=== PATIENT | male | born 1950 | race Caucasian/White ===

== ENCOUNTER 2018-06-30 19:05 | Inpatient (IN) | payer MEDICARE ==
[~2018-06-30] VITALS: Ht 177.8 cm; Wt 119.0 kg
[2018-06-30] MEDS ORDERED: HEPARIN 25,000 UNITS/500ML PMX 500 ML ONE (19:14)
[2018-06-30] MEDS ORDERED: SODIUM CHLORIDE FLUSH 10ML SYR IVF ONE (19:30)
[2018-06-30 19:37] LABS: BASOPHILS # (AUTO) 0.08 x10^3/uL (0-0.1); BASOPHILS % (AUTO) 1 % (0-1); EOSINOPHILS # (AUTO) 0.17 x10^3/uL (0-0.4); EOSINOPHILS % (AUTO) 2 % (1-7); LYMPHOCYTES % (AUTO) 27 % (22-44); MD NO; MEAN CORPUSCULAR HGB CONC 33.3 g/dL (33.2-36.2); MEAN CORPUSCULAR VOLUME 89.9 fL (81-97); MEAN PLATELET VOLUME 8.1 fL (7.4-10.4); MONOCYTES # (AUTO) 0.73 x10^3/uL (0.2-0.8); MONOCYTES % (AUTO) 10 % (2-9); NEUTROPHILS # (AUTO) 4.46 x10^3/uL (1.8-6.8); NEUTROPHILS % (AUTO) 60 % (42-75); PLATELET COUNT 218 x10^3/uL (130-400); RED CELL DISTRIBUTION WIDTH 14.2 % (9.4-14.8)
[2018-06-30 19:43] LABS: INTERNATIONAL NORMALIZED RATIO 1.06 (0.93-1.1); PROTHROMBIN TIME 11.2 Seconds (9.6-11.5)
[2018-06-30 19:44] LABS: ALBUMIN 3.5 g/dL (3.4-5.0); ANION GAP 9 mmol/L (5-15); CALCIUM 8.7 mg/dL (8.5-10.1); CHLORIDE 109 mmol/L (98-107)
[2018-06-30 19:52] LABS: ALANINE AMINOTRANSFERASE 36 U/L (12-78); ALKALINE PHOSPHATASE 109 U/L (45-117); BILIRUBIN,TOTAL 0.6 mg/dL (0.2-1.0); CREATININE 0.81 mg/dL (0.7-1.3); TOTAL PROTEIN 6.8 g/dL (6.4-8.2)
[2018-06-30] MEDS ORDERED: NITROGLYCERIN/D5W PMX 250 ML ONE (19:55)
[2018-06-30] MEDS ORDERED: NITROGLYCERIN/D5W PMX 250 ML IV PRN (20:00)
[2018-06-30] MEDS ORDERED: ASPI-496 PO (20:13)
[2018-06-30] MEDS ORDERED: ATOR40TA78 PO (20:13)
[2018-06-30] MEDS ORDERED: CLOP75TA52 PO (20:13)
[2018-06-30] MEDS ORDERED: HYDR25TA6 PO (20:13)
[2018-06-30] MEDS ORDERED: OMEP-110 PO (20:13)
[2018-06-30] MEDS ORDERED: CARV3.1212 PO (20:13)
[2018-06-30] MEDS ORDERED: LOSA100T14 PO (20:13)
--- NOTE | 2018-06-30 20:19 | NUR ---
CAME FROM [facility] D/T CT ( ST DEPRESSION ) DR BRADLEY AT BED SIDE ADMIT ORDER NTG WAS STARTED BY DR BRADLEY WILL CONTROL SBP<140 HEP GTT WAS STARTED FROM [facility] WITH 1000UNIS/HR WILL KEEP THAT RATE UNTIL ANTI XA RESULT OBTAIN LABS WERE DRAWN ANTXA IS STILL PENDING PER DR BRADLEY ( WILL HOLD INITIAL BOLUS ) PT IS RESTING HOME MED REC WERE UPDATED CALL LIGHT WITHIN REACH
[2018-06-30] MEDS ORDERED: SODIUM CHLORIDE FLUSH 10ML SYR IVF PRN (20:30)
[2018-06-30] MEDS ORDERED: HEPARIN 5,000 UNITS/ML, 1ML IV ONE (20:30)
[2018-06-30] MEDS ORDERED: PLEASE ENTER ALLERGIES MC SCH (20:30)
[2018-06-30] MEDS ORDERED: HEPARIN 5,000 UNITS/ML, 1ML IV PRN (20:30)
[2018-06-30] MEDS ORDERED: HEPARIN 25,000 UNITS/500ML PMX 500 ML IV PRN (20:30)
--- NOTE | 2018-06-30 20:47 | NUR ---
GIVEN REPORT TO RN CHANA NTG AND HEP GTT IS INFUSING
[2018-06-30] MEDS ORDERED: morphine SULFATE 10 MG/ML, 1ML IV PRN (21:00)
[2018-06-30] MEDS ORDERED: ATORVASTATIN 80 MG TABLET PO SCH (21:00)
[2018-06-30 21:25] LABS: CHOL/HDL RATIO 1.9; LDL/HDL RATIO 0.7 (0.5-3.0)
[2018-06-30 21:30] VITALS: BP 134/76
[2018-06-30] MEDS: SODIUM CHLORIDE FLUSH 10ML SYR IVF SCH (22:18)
[2018-06-30] MEDS: CARVEDILOL 6.25 MG TABLET PO SCH (22:18)
[2018-06-30] MEDS ORDERED: OMEPRAZOLE 20 MG CAPSULE.DR PO ONE (23:00)
[2018-07-01 04:00] VITALS: BP 112/52
[2018-07-01 04:45] VITALS: BP 148/72
[2018-07-01 05:00] VITALS: BP 142/75
[2018-07-01] MEDS: CARVEDILOL 6.25 MG TABLET PO SCH (05:05)
[2018-07-01 05:58] LABS: BASOPHILS # (AUTO) 0.04 x10^3/uL (0-0.1); BASOPHILS % (AUTO) 1 % (0-1); EOSINOPHILS # (AUTO) 0.16 x10^3/uL (0-0.4); EOSINOPHILS % (AUTO) 2 % (1-7); LYMPHOCYTES # (AUTO) 1.83 x10^3/uL (1-3.4); LYMPHOCYTES % (AUTO) 28 % (22-44); MD NO; MEAN CORPUSCULAR HEMOGLOBIN 29.9 pg (27.5-34.5); MEAN CORPUSCULAR HGB CONC 33.7 g/dL (33.2-36.2); MEAN CORPUSCULAR VOLUME 88.7 fL (81-97); MEAN PLATELET VOLUME 8.2 fL (7.4-10.4); MONOCYTES # (AUTO) 0.75 x10^3/uL (0.2-0.8); MONOCYTES % (AUTO) 12 % (2-9); NEUTROPHILS % (AUTO) 57 % (42-75); PLATELET COUNT 208 x10^3/uL (130-400); RED BLOOD COUNT 4.42 x10^6/uL (4.38-5.82); RED CELL DISTRIBUTION WIDTH 13.8 % (9.4-14.8)
[2018-07-01] MEDS ORDERED: ASPIRIN 81 MG TABLET EC PO SCH (06:00)
[2018-07-01] MEDS ORDERED: OMEPRAZOLE 20 MG CAPSULE.DR PO SCH (06:00)
[2018-07-01 06:12] LABS: ANION GAP 7 mmol/L (5-15); CALCIUM 8.3 mg/dL (8.5-10.1); CHLORIDE 109 mmol/L (98-107); CREATININE 0.69 mg/dL (0.7-1.3)
[2018-07-01] MEDS ORDERED: REGULAR INSULIN 62.5 UNITS in SODIUM CHLORIDE 0.9% 249.375 ML IV PRN ×2 (07:30→11:48)
[2018-07-01] MEDS ORDERED: MANNITOL PMX 20% 500 ML IVPB PRN (07:30)
[2018-07-01] MEDS ORDERED: PHENYLEPHRINE 10 MG in SODIUM CHLORIDE 0.9% 249 ML IV PRN ×2 (07:30→11:48)
[2018-07-01] MEDS ORDERED: POTASSIUM CHLORIDE 80 MEQ, SODIUM BICARBONATE 8.4% 10 MEQ, MAGNESIUM SULFATE 0.5 GM, LI... IV PRN (07:30)
[2018-07-01] MEDS ORDERED: CEFUROXIME 1.5 GM in SODIUM CHLORIDE 0.9% 50 ML IVPB PRN (07:30)
[2018-07-01] MEDS ORDERED: VANCOMYCIN 1,800 MG in SODIUM CHLORIDE 0.9% 250 ML IV PRN (07:30)
[2018-07-01] MEDS ORDERED: EPINEPHRINE 2 MG in SODIUM CHLORIDE 0.9% 248 ML IV SCH (07:30)
[2018-07-01] MEDS ORDERED: DEXMEDETOMIDINE 200 MCG in SODIUM CHLORIDE 0.9% 48 ML IV SCH (07:30)
[2018-07-01] MEDS ORDERED: HEPARIN 1,000 UNITS/ML, 10ML ONE (07:40)
[2018-07-01] MEDS ORDERED: PAPAVERINE 30 MG/ML, 2ML ONE (07:40)
[2018-07-01] MEDS ORDERED: ALBUMIN HUMAN 5% 500 ML IV PRN (08:00)
[2018-07-01] MEDS ORDERED: FENTANYL PF 250 MCG/5ML ONE ×4 (08:08)
[2018-07-01] MEDS ORDERED: MIDAZOLAM 10MG/2 ML ONE (08:08)
[2018-07-01] MEDS ORDERED: LOSARTAN 50MG TABLET PO SCH (09:00)
[2018-07-01] MEDS ORDERED: CHLORHEXIDINE 15 ML UDC MM PRN (09:00)
[2018-07-01] MEDS: DOCUSATE 100 MG CAPSULE PO SCH ×2 (09:00→21:00)
[2018-07-01] MEDS ORDERED: INSULIN LISPRO 100 UNITS/ML, PEN SQ-INSULIN SCH (09:00)
[2018-07-01] MEDS: SODIUM CHLORIDE FLUSH 10ML SYR IVF SCH ×2 (09:19→21:20)
[2018-07-01 09:27] LABS: BASOPHILS # (AUTO) 0.02 x10^3/uL (0-0.1); BASOPHILS % (AUTO) 0 % (0-1); EOSINOPHILS % (AUTO) 2 % (1-7); LYMPHOCYTES # (AUTO) 1.26 x10^3/uL (1-3.4); LYMPHOCYTES % (AUTO) 22 % (22-44); MD NO; MEAN CORPUSCULAR HEMOGLOBIN 29.5 pg (27.5-34.5); MEAN CORPUSCULAR HGB CONC 33.1 g/dL (33.2-36.2); MEAN PLATELET VOLUME 7.9 fL (7.4-10.4); MONOCYTES # (AUTO) 0.54 x10^3/uL (0.2-0.8); MONOCYTES % (AUTO) 9 % (2-9); NEUTROPHILS # (AUTO) 3.86 x10^3/uL (1.8-6.8); NEUTROPHILS % (AUTO) 67 % (42-75); PLATELET COUNT 201 x10^3/uL (130-400); RED BLOOD COUNT 4.04 x10^6/uL (4.38-5.82)
[2018-07-01] MEDS ORDERED: VANCOMYCIN 1,800 MG in SODIUM CHLORIDE 0.9% 250 ML IVPB SCH (09:30)
[2018-07-01 09:42] LABS: ALBUMIN 2.8 g/dL (3.4-5.0); ANION GAP 6 mmol/L (5-15); CALCIUM 8.4 mg/dL (8.5-10.1); CHLORIDE 109 mmol/L (98-107)
[2018-07-01 09:45] LABS: ALANINE AMINOTRANSFERASE 31 U/L (12-78); ALKALINE PHOSPHATASE 98 U/L (45-117); BILIRUBIN,TOTAL 0.6 mg/dL (0.2-1.0); CREATININE 0.66 mg/dL (0.7-1.3); TOTAL PROTEIN 5.7 g/dL (6.4-8.2)
[2018-07-01 09:54] LABS: INTERNATIONAL NORMALIZED RATIO 1.11 (0.93-1.1); PROTHROMBIN TIME 11.7 Seconds (9.6-11.5)
[2018-07-01] MEDS ORDERED: ROCURONIUM 10MG/ML,5ML ONE ×2 (10:38)
[2018-07-01] MEDS ORDERED: PROPOFOL 10 MG/ML, 20ML ONE (10:38)
[2018-07-01] MEDS ORDERED: PROTAMINE SULFATE 10 MG/ML, 25ML ONE ×2 (10:38)
[2018-07-01] MEDS ORDERED: AMINOCAPROIC ACID 250 MG/ML, 20ML ONE ×2 (10:38)
[2018-07-01] MEDS ORDERED: CALCIUM CHLORIDE 10%, 10ML SYR ONE (10:39)
[2018-07-01] MEDS ORDERED: SODIUM CHLORIDE 0.9% 1,000 ML IV PRN (11:48)
[2018-07-01] MEDS ORDERED: DOBUTAMINE 250 MG in SODIUM CHLORIDE 0.9% 230 ML IV PRN (11:48)
[2018-07-01] MEDS ORDERED: NITROGLYCERIN/D5W PMX 250 ML IV PRN (11:48)
[2018-07-01] MEDS ORDERED: VASOPRESSIN 50 UNIT in SODIUM CHLORIDE 0.9% 247.5 ML IV PRN (11:48)
[2018-07-01] MEDS ORDERED: HYDROcodone/APAP 10/325 MG TABLET PO PRN (12:00)
[2018-07-01] MEDS ORDERED: ACETAMINOPHEN 325 MG TABLET PO PRN (12:00)
[2018-07-01] MEDS ORDERED: HYDROcodone/APAP 5/325 TABLET PO PRN (12:00)
[2018-07-01] MEDS ORDERED: PROCHLORPERAZINE 5 MG/ML, 2ML IVPush PRN (12:00)
[2018-07-01] MEDS ORDERED: BISACODYL 10 MG SUPP PR PRN (12:00)
[2018-07-01] MEDS ORDERED: GLUCAGON 1 MG IM PRN (12:00)
[2018-07-01] MEDS ORDERED: DEXTROSE 4 GM TAB.CHEW PO PRN (12:00)
[2018-07-01] MEDS ORDERED: ONDANSETRON 2MG/ML, 2ML IVPush PRN (12:00)
[2018-07-01] MEDS ORDERED: INSULIN REGULAR 100 UNITS/ML, 3ML VIAL IVPush PRN (12:00)
[2018-07-01] MEDS ORDERED: MIDAZOLAM 1 MG/ML, 5ML IVPush PRN (12:00)
[2018-07-01] MEDS ORDERED: ACETAMINOPHEN 650 MG SUPP PR PRN (12:00)
[2018-07-01] MEDS ORDERED: BISACODYL 5 MG EC TABLET PO PRN (12:00)
[2018-07-01] MEDS ORDERED: DEXTROSE 50%, 50ML SYRINGE IVPush PRN (12:00)
[2018-07-01] MEDS: KSCALE TO 4.5 IV SCH ×2 (12:00→18:00)
[2018-07-01] MEDS ORDERED: EPINEPHRINE 2 MG in SODIUM CHLORIDE 0.9% 248 ML IV PRN (12:00)
[2018-07-01] MEDS ORDERED: SODIUM BICARB 8.4%, 50ML SYRINGE IV PRN (12:00)
[2018-07-01] MEDS ORDERED: HEPARIN 1,000 UNITS/ML, 30ML ONE (12:01)
[2018-07-01] MEDS ORDERED: MANNITOL 0.25 GM/ML, 50ML ONE (12:01)
[2018-07-01] MEDS ORDERED: PHENYLEPHRINE 10 MG/ML ONE (12:02)
[2018-07-01] MEDS ORDERED: LIDOCAINE 2% 100MG/5ML SYRINGE ONE (12:02)
[2018-07-01] MEDS ORDERED: ALBUMIN HUMAN 25% 50 ML ONE (12:03)
[2018-07-01 12:28] LABS: GLUCOSE BY BLOOD GAS ANALYZER 147 mg/dL (70-110); HEMOGLOBIN BY BLOOD GAS ANALYZ 11.2 g/dL (14.0-18.0); POTASSIUM BY BLOOD GAS ANALYZR 3.6 mmol/L (3.6-5.5)
[2018-07-01] MEDS: INSULIN LISPRO 100 UNITS/ML, PEN SQ-INSULIN SCH ×2 (12:53→21:00)
[2018-07-01] MEDS ORDERED: POTASSIUM CHLORIDE PMX 100 ML IV ONE (13:06)
[2018-07-01] MEDS: DEXMEDETOMIDINE 200 MCG in SODIUM CHLORIDE 0.9% 48 ML IV PRN ×2 (13:22→17:05)
[2018-07-01] MEDS: LACTATED RINGERS 1,000 ML IV PRN ×3 (13:23→16:52)
[2018-07-01] MEDS: FENTANYL PF 100 MCG/2ML IVPush PRN ×2 (13:55→15:44)
[2018-07-01] MEDS: MAGNESIUM SULFATE 1 GM in SODIUM CHLORIDE 0.9% 50 ML IVPB SCH (15:45)
[2018-07-01] MEDS: OXYcodone IR 5MG TABLET PO PRN ×2 (19:06→19:29)
[2018-07-01] MEDS: CEFUROXIME 1.5 GM in SODIUM CHLORIDE 0.9% 50 ML IVPB SCH (21:23)
[2018-07-01] MEDS: MUPIROCIN OINT 2%, 22GM NAS SCH (21:24)
[2018-07-01] MEDS: VANCOMYCIN 1,800 MG in SODIUM CHLORIDE 0.9% 250 ML IVPB SCH (21:30)
[2018-07-02] MEDS: OXYcodone IR 5MG TABLET PO PRN ×5 (00:23→19:49)
[2018-07-02 04:00] VITALS: BP 113/57
[2018-07-02] MEDS: INSULIN LISPRO 100 UNITS/ML, PEN SQ-INSULIN SCH ×4 (06:00→19:48)
[2018-07-02] MEDS: KSCALE TO 4.5 IV SCH ×2 (06:00)
[2018-07-02 06:48] LABS: MEAN CORPUSCULAR HGB CONC 33.6 g/dL (33.2-36.2); MEAN CORPUSCULAR VOLUME 89.2 fL (81-97); MEAN PLATELET VOLUME 8.6 fL (7.4-10.4); PLATELET COUNT 163 x10^3/uL (130-400); RED CELL DISTRIBUTION WIDTH 14.2 % (9.4-14.8)
[2018-07-02 06:51] LABS: ALBUMIN 2.7 g/dL (3.4-5.0); ANION GAP 7 mmol/L (5-15); CHLORIDE 114 mmol/L (98-107); CREATININE 0.89 mg/dL (0.7-1.3)
[2018-07-02 07:07] LABS: MD YES
[2018-07-02 07:11] LABS: <PLATELET ESTIMATE> ADEQUATE; <PLT MORPHOLOGY> NORMAL PLT MORPH; <RBC MORPHOLOGY> NORMAL; BAND#(MANUAL) 0.78 x10^3/uL; BANDS%(MANUAL) 5 % (0-7); LYMPH#(MANUAL) 0.62 x10^3/uL (1-3.4); LYMPHS% (MANUAL) 4 % (22-44); MONOS#(MANUAL) 0.93 x10^3/uL (0.3-2.7); MONOS% (MANUAL) 6 % (2-9); SEG#(MANUAL) 13.18 x10^3/uL (1.8-6.8); SEGS% (MANUAL) 85 % (42-75)
[2018-07-02] MEDS ORDERED: VANCOMYCIN 1,500 MG in SODIUM CHLORIDE 0.9% 250 ML IVPB PRN (07:30)
[2018-07-02] MEDS ORDERED: CEFUROXIME 1.5 GM in SODIUM CHLORIDE 0.9% 50 ML IVPB PRN (07:30)
[2018-07-02] MEDS: DOCUSATE 100 MG CAPSULE PO SCH ×2 (08:14→19:49)
[2018-07-02] MEDS: CEFUROXIME 1.5 GM in SODIUM CHLORIDE 0.9% 50 ML IVPB SCH (08:14)
[2018-07-02] MEDS: VANCOMYCIN 1,800 MG in SODIUM CHLORIDE 0.9% 250 ML IVPB SCH (08:14)
[2018-07-02] MEDS: ASPIRIN 81 MG TABLET EC PO SCH (08:14)
[2018-07-02] MEDS: SODIUM CHLORIDE FLUSH 10ML SYR IVF SCH ×2 (08:22→19:43)
[2018-07-02] MEDS: CARVEDILOL 3.125 MG TABLET PO SCH ×2 (08:27→16:58)
[2018-07-02] MEDS: MUPIROCIN OINT 2%, 22GM NAS SCH ×2 (08:39→19:48)
[2018-07-02] MEDS ORDERED: POTASSIUM CHLORIDE 10 MEQ TABLET.ER PO SCH (10:30)
[2018-07-02] MEDS: FUROSEMIDE 20 MG/2 ML IV SCH (11:04)
[2018-07-02] MEDS: LOSARTAN 25MG TABLET PO SCH (11:04)
[2018-07-02] MEDS: MAGNESIUM SULFATE 1 GM in SODIUM CHLORIDE 0.9% 50 ML IVPB SCH (15:07)
[2018-07-02] MEDS: CHLORHEXIDINE 15 ML UDC MM SCH (19:49)
[2018-07-03] MEDS: OXYcodone IR 5MG TABLET PO PRN ×2 (00:08→06:16)
[2018-07-03] MEDS ORDERED: FUROSEMIDE 20 MG/2 ML IV ONE (02:00)
[2018-07-03 04:06] VITALS: BP 124/57
[2018-07-03 04:54] LABS: MEAN CORPUSCULAR HEMOGLOBIN 30.4 pg (27.5-34.5); MEAN CORPUSCULAR HGB CONC 33.6 g/dL (33.2-36.2); MEAN CORPUSCULAR VOLUME 90.3 fL (81-97); MEAN PLATELET VOLUME 8.5 fL (7.4-10.4); PLATELET COUNT 142 x10^3/uL (130-400); RED BLOOD COUNT 3.36 x10^6/uL (4.38-5.82); RED CELL DISTRIBUTION WIDTH 14.8 % (9.4-14.8)
[2018-07-03 04:57] LABS: ANION GAP 7 mmol/L (5-15); CALCIUM 8.1 mg/dL (8.5-10.1); CHLORIDE 113 mmol/L (98-107)
[2018-07-03 04:58] LABS: CREATININE 1.35 mg/dL (0.7-1.3)
[2018-07-03 05:32] LABS: MD YES
[2018-07-03 05:34] LABS: LYMPHS% (MANUAL) 5 % (22-44); MONOS#(MANUAL) 2.79 x10^3/uL (0.3-2.7); MONOS% (MANUAL) 14 % (2-9); SEG#(MANUAL) 16.12 x10^3/uL (1.8-6.8); SEGS% (MANUAL) 81 % (42-75)
[2018-07-03 05:35] LABS: <PLATELET ESTIMATE> ADEQUATE; <PLT MORPHOLOGY> NORMAL PLT MORPH; <RBC MORPHOLOGY> NORMAL
[2018-07-03] MEDS: CARVEDILOL 3.125 MG TABLET PO SCH ×2 (06:20→20:36)
[2018-07-03] MEDS: INSULIN LISPRO 100 UNITS/ML, PEN SQ-INSULIN SCH ×4 (07:00→20:19)
[2018-07-03] MEDS: SODIUM CHLORIDE FLUSH 10ML SYR IVF SCH ×3 (08:28→20:37)
[2018-07-03] MEDS: DOCUSATE 100 MG CAPSULE PO SCH ×2 (08:28→20:54)
[2018-07-03] MEDS: LOSARTAN 25MG TABLET PO SCH (08:28)
[2018-07-03] MEDS: ASPIRIN 81 MG TABLET EC PO SCH (08:28)
[2018-07-03] MEDS: MUPIROCIN OINT 2%, 22GM NAS SCH ×2 (08:29→20:37)
[2018-07-03] MEDS: CHLORHEXIDINE 15 ML UDC MM SCH ×2 (08:29→20:36)
[2018-07-03] MEDS: FUROSEMIDE 20 MG/2 ML IV SCH (08:29)
[2018-07-03] MEDS: ENOXAPARIN 40 MG/0.4 ML SQ SCH (08:29)
[2018-07-03] MEDS ORDERED: POTASSIUM CHLORIDE 10 MEQ TABLET.ER PO SCH (09:00)
[2018-07-03] MEDS ORDERED: FUROSEMIDE 20 MG/2 ML IV SCH (09:00)
[2018-07-03] MEDS ORDERED: MAGNESIUM HYDROXIDE 8%, 30ML UDC PO PRN (09:30)
[2018-07-03] MEDS: MAGNESIUM SULFATE 1 GM in SODIUM CHLORIDE 0.9% 50 ML IVPB SCH (16:01)
[2018-07-03 19:34] VITALS: BP 130/59
[2018-07-03] MEDS: ATORVASTATIN 40 MG TABLET PO SCH (20:36)
[2018-07-03] MEDS ORDERED: ATORVASTATIN 40 MG TABLET PO SCH (21:00)
[2018-07-03] MEDS ORDERED: MORPHINE SULFATE 4 MG/ML, 1ML IVPush PRN (22:00)
[2018-07-04] VITALS (7 sets, daily range): BP systolic 83–129; BP diastolic 47–77
[2018-07-04] MEDS ORDERED: AMIODARONE 150 MG in DEXTROSE 5% 100 ML IV ONE ×2 (02:30→11:00)
[2018-07-04] MEDS: AMIODARONE 900 MG in DEXTROSE 5% 482 ML IV PRN (03:00)
[2018-07-04] MEDS ORDERED: FUROSEMIDE 20 MG/2 ML IV ONE (03:30)
[2018-07-04] MEDS: INSULIN LISPRO 100 UNITS/ML, PEN SQ-INSULIN SCH ×3 (07:00→21:00)
[2018-07-04 08:38] LABS: MEAN CORPUSCULAR HEMOGLOBIN 30.2 pg (27.5-34.5); MEAN CORPUSCULAR HGB CONC 33.5 g/dL (33.2-36.2); MEAN CORPUSCULAR VOLUME 90.4 fL (81-97); MEAN PLATELET VOLUME 8.3 fL (7.4-10.4); PLATELET COUNT 172 x10^3/uL (130-400); RED BLOOD COUNT 3.29 x10^6/uL (4.38-5.82); RED CELL DISTRIBUTION WIDTH 14.5 % (9.4-14.8)
[2018-07-04 08:39] LABS: ANION GAP 3 mmol/L (5-15); CALCIUM 8.7 mg/dL (8.5-10.1); CHLORIDE 112 mmol/L (98-107); CREATININE 1.27 mg/dL (0.7-1.3)
[2018-07-04] MEDS: LOSARTAN 25MG TABLET PO SCH (09:00)
[2018-07-04] MEDS ORDERED: ASPIRIN 81 MG TABLET CHEW PO SCH (09:00)
[2018-07-04] MEDS: FUROSEMIDE 20 MG/2 ML IV SCH (09:00)
[2018-07-04] MEDS ORDERED: CLOPIDOGREL 75 MG TABLET PO SCH ×2 (09:00)
[2018-07-04] MEDS ORDERED: HYDROCHLOROTHIAZIDE 25 MG TABLET PO SCH (09:00)
[2018-07-04] MEDS ORDERED: OMEPRAZOLE 20 MG CAPSULE.DR PO SCH (09:00)
[2018-07-04] MEDS: CARVEDILOL 3.125 MG TABLET PO SCH ×2 (09:00→21:00)
[2018-07-04] MEDS: DOCUSATE 100 MG CAPSULE PO SCH ×2 (09:00→21:00)
[2018-07-04] MEDS ORDERED: LOSARTAN 50MG TABLET PO SCH (09:00)
[2018-07-04] MEDS: SODIUM CHLORIDE FLUSH 10ML SYR IVF SCH ×4 (09:00→21:00)
[2018-07-04 09:06] LABS: BASOPHILS # (AUTO) 0.01 x10^3/uL (0-0.1); BASOPHILS % (AUTO) 0 % (0-1); EOSINOPHILS # (AUTO) 0.02 x10^3/uL (0-0.4); EOSINOPHILS % (AUTO) 0 % (1-7); LYMPHOCYTES # (AUTO) 0.73 x10^3/uL (1-3.4); LYMPHOCYTES % (AUTO) 5 % (22-44); MD SCAN; MONOCYTES # (AUTO) 1.67 x10^3/uL (0.2-0.8); MONOCYTES % (AUTO) 11 % (2-9); NEUTROPHILS # (AUTO) 12.38 x10^3/uL (1.8-6.8); NEUTROPHILS % (AUTO) 84 % (42-75)
--- NOTE | 2018-07-04 09:45 | NUR ---
REC: NPO with IV fluids/IV meds except ice chips Addendum: 07/04/18 at 0946 by Joanne CAZARES Amended: Links added.
[2018-07-04] MEDS: CHLORHEXIDINE 15 ML UDC MM SCH (09:47)
[2018-07-04] MEDS: ENOXAPARIN 40 MG/0.4 ML SQ SCH (09:48)
[2018-07-04] MEDS: MUPIROCIN OINT 2%, 22GM NAS SCH (09:48)
[2018-07-04] MEDS ORDERED: AMIODARONE 50 MG/ML, 3ML IVPush ONE (10:00)
--- NOTE | 2018-07-04 10:09 | NUR ---
REC: Pureed diet with NTL; head turn right side for all swallows Addendum: 07/04/18 at 1010 by Joanne CAZARES Amended: Links added. Addendum: 07/07/18 at 911 by Joanne CAZARES This was an incorrect entry for this patient. The recommendation was NPO with IV fluids/meds. Thank you. Signed: 07/07/18 at 12 by Joanne CAZARES
[2018-07-04] MEDS ORDERED: SODIUM CHLORIDE 0.9%, 500ML IVBOLUS ONE (11:00)
[2018-07-04] MEDS: AMPICILLIN/SULBACTAM 1,500 MG in SODIUM CHLORIDE 0.9% 50 ML IV SCH (11:59)
[2018-07-04] MEDS ORDERED: INSULIN LISPRO 100 UNITS/ML, PEN SQ-INSULIN SCH (12:00)
--- NOTE | 2018-07-04 15:52 | NUR ---
REC: NPO with IV fluids/IV meds except ice chips Addendum: 07/04/18 at 1553 by Joanne CAZARES Amended: Links added.
[2018-07-04] MEDS: ATORVASTATIN 40 MG TABLET PO SCH (21:00)
[2018-07-05] MEDS: MUPIROCIN OINT 2%, 22GM NAS SCH ×3 (01:08→20:26)
[2018-07-05] MEDS: AMPICILLIN/SULBACTAM 1,500 MG in SODIUM CHLORIDE 0.9% 50 ML IV SCH ×2 (01:14→14:37)
[2018-07-05 01:23] VITALS: BP 120/75
[2018-07-05] MEDS: INSULIN LISPRO 100 UNITS/ML, PEN SQ-INSULIN SCH (03:00)
[2018-07-05] MEDS: AMIODARONE 900 MG in DEXTROSE 5% 482 ML IV PRN (05:13)
[2018-07-05 05:39] LABS: ANION GAP 7 mmol/L (5-15); CALCIUM 7.7 mg/dL (8.5-10.1); CHLORIDE 115 mmol/L (98-107); CREATININE 0.79 mg/dL (0.7-1.3)
[2018-07-05 05:52] LABS: MEAN CORPUSCULAR HEMOGLOBIN 30.1 pg (27.5-34.5); MEAN CORPUSCULAR HGB CONC 33.5 g/dL (33.2-36.2); MEAN CORPUSCULAR VOLUME 89.8 fL (81-97); MEAN PLATELET VOLUME 8.6 fL (7.4-10.4); PLATELET COUNT 168 x10^3/uL (130-400); RED BLOOD COUNT 2.83 x10^6/uL (4.38-5.82); RED CELL DISTRIBUTION WIDTH 14.3 % (9.4-14.8)
[2018-07-05 06:38] LABS: BASOPHILS # (AUTO) 0.03 x10^3/uL (0-0.1); BASOPHILS % (AUTO) 0 % (0-1); EOSINOPHILS # (AUTO) 0.07 x10^3/uL (0-0.4); EOSINOPHILS % (AUTO) 1 % (1-7); LYMPHOCYTES # (AUTO) 0.74 x10^3/uL (1-3.4); LYMPHOCYTES % (AUTO) 8 % (22-44); MD SCAN; MONOCYTES # (AUTO) 1.01 x10^3/uL (0.2-0.8); MONOCYTES % (AUTO) 11 % (2-9); NEUTROPHILS # (AUTO) 7.63 x10^3/uL (1.8-6.8); NEUTROPHILS % (AUTO) 80 % (42-75)
[2018-07-05 07:14] VITALS: BP 127/68
[2018-07-05] MEDS: ENOXAPARIN 40 MG/0.4 ML SQ SCH (10:46)
[2018-07-05] MEDS: SODIUM CHLORIDE FLUSH 10ML SYR IVF SCH ×2 (10:47→20:26)
[2018-07-05 13:17] VITALS: BP 135/82
[2018-07-05] MEDS ORDERED: BENZOCAINE 20% SPRAY 0.5ML ONE (13:54)
[2018-07-05] MEDS ORDERED: LIDOCAINE 2%, 6 ML JEL.PF.APP MM ONE (13:54)
[2018-07-05] MEDS ORDERED: MAGNESIUM HYDROXIDE 8%, 30ML UDC NG PRN (15:30)
[2018-07-05] MEDS ORDERED: HYDROcodone/APAP 10/325 MG TABLET NG PRN (16:00)
[2018-07-05] MEDS ORDERED: HYDROcodone/APAP 5/325 TABLET NG PRN (16:00)
[2018-07-05] MEDS ORDERED: OMNIPAQUE 350 MG/ML, 50 ML BOTTLE ONE (17:42)
[2018-07-05] MEDS: CARVEDILOL 3.125 MG TABLET NG SCH (18:15)
[2018-07-05] MEDS: ASPIRIN 81 MG TABLET CHEW NG SCH (18:15)
[2018-07-05] MEDS: CLOPIDOGREL 75 MG TABLET NG SCH (18:16)
[2018-07-05] MEDS: HYDROCHLOROTHIAZIDE 25 MG TABLET NG SCH (18:16)
[2018-07-05] MEDS: LOSARTAN 25MG TABLET NG SCH (18:16)
[2018-07-05] MEDS: OMEPRAZOLE 20 MG CAPSULE.DR NG SCH (18:16)
[2018-07-05 19:52] VITALS: BP 140/82
[2018-07-05] MEDS: ATORVASTATIN 40 MG TABLET NG SCH (20:26)
[2018-07-05] MEDS: DOCUSATE 50 MG/5 ML, 10ML UDC NG SCH (20:26)
[2018-07-06] MEDS ORDERED: AMIODARONE 900 MG in DEXTROSE 5% 482 ML IV PRN (02:30)
[2018-07-06 02:32] VITALS: BP 120/80
[2018-07-06] MEDS: AMPICILLIN/SULBACTAM 1,500 MG in SODIUM CHLORIDE 0.9% 50 ML IV SCH ×2 (02:35→15:38)
[2018-07-06] MEDS: CARVEDILOL 3.125 MG TABLET NG SCH ×2 (05:07→18:25)
[2018-07-06 06:11] LABS: ANION GAP 7 mmol/L (5-15); CALCIUM 8.3 mg/dL (8.5-10.1); CHLORIDE 115 mmol/L (98-107)
[2018-07-06 06:12] LABS: CREATININE 0.78 mg/dL (0.7-1.3)
[2018-07-06 06:14] LABS: BASOPHILS # (AUTO) 0.02 x10^3/uL (0-0.1); BASOPHILS % (AUTO) 0 % (0-1); EOSINOPHILS % (AUTO) 1 % (1-7); LYMPHOCYTES # (AUTO) 0.72 x10^3/uL (1-3.4); LYMPHOCYTES % (AUTO) 9 % (22-44); MD NO; MEAN CORPUSCULAR HEMOGLOBIN 29.7 pg (27.5-34.5); MEAN CORPUSCULAR HGB CONC 33.5 g/dL (33.2-36.2); MEAN CORPUSCULAR VOLUME 88.8 fL (81-97); MEAN PLATELET VOLUME 7.5 fL (7.4-10.4); MONOCYTES # (AUTO) 0.89 x10^3/uL (0.2-0.8); MONOCYTES % (AUTO) 12 % (2-9); NEUTROPHILS # (AUTO) 5.96 x10^3/uL (1.8-6.8); NEUTROPHILS % (AUTO) 78 % (42-75); PLATELET COUNT 224 x10^3/uL (130-400); RED BLOOD COUNT 3.16 x10^6/uL (4.38-5.82); RED CELL DISTRIBUTION WIDTH 14.1 % (9.4-14.8)
[2018-07-06 07:18] VITALS: BP 155/88
[2018-07-06] MEDS: LOSARTAN 25MG TABLET NG SCH (09:00)
[2018-07-06] MEDS: DOCUSATE 50 MG/5 ML, 10ML UDC NG SCH ×2 (09:00→20:17)
[2018-07-06] MEDS: CLOPIDOGREL 75 MG TABLET NG SCH (09:00)
[2018-07-06] MEDS: HYDROCHLOROTHIAZIDE 25 MG TABLET NG SCH (09:00)
[2018-07-06] MEDS: ASPIRIN 81 MG TABLET CHEW NG SCH (09:00)
[2018-07-06] MEDS: OMEPRAZOLE 20 MG CAPSULE.DR NG SCH (09:00)
[2018-07-06] MEDS: MUPIROCIN OINT 2%, 22GM NAS SCH (09:51)
[2018-07-06] MEDS: SODIUM CHLORIDE FLUSH 10ML SYR IVF SCH ×2 (09:52→20:17)
[2018-07-06] MEDS: FILTER 0.22 MICRON (AMIODARONE) IV PRN (09:54)
[2018-07-06] MEDS: ENOXAPARIN 40 MG/0.4 ML SQ SCH (09:57)
[2018-07-06 14:43] VITALS: BP 149/80
--- NOTE | 2018-07-06 17:54 | NUR ---
REC NTL/FULL LIQUID DIET; swallow precautions sheet posted at bedside Addendum: 07/06/18 at [address] Amended: Links added.
[2018-07-06 19:41] VITALS: BP 134/76
[2018-07-06] MEDS: ATORVASTATIN 40 MG TABLET NG SCH (20:17)
[2018-07-07 01:34] VITALS: BP 150/78
[2018-07-07] MEDS: AMPICILLIN/SULBACTAM 1,500 MG in SODIUM CHLORIDE 0.9% 50 ML IV SCH ×3 (03:31→14:24)
[2018-07-07 07:43] VITALS: BP 152/81
[2018-07-07] MEDS: DOCUSATE 50 MG/5 ML, 10ML UDC NG SCH ×2 (08:02→21:31)
[2018-07-07] MEDS: ENOXAPARIN 40 MG/0.4 ML SQ SCH (08:02)
[2018-07-07] MEDS: CLOPIDOGREL 75 MG TABLET NG SCH (08:03)
[2018-07-07] MEDS: LOSARTAN 25MG TABLET NG SCH (08:03)
[2018-07-07] MEDS: OMEPRAZOLE 20 MG CAPSULE.DR NG SCH (08:03)
[2018-07-07] MEDS: CARVEDILOL 3.125 MG TABLET NG SCH (08:04)
[2018-07-07] MEDS: HYDROCHLOROTHIAZIDE 25 MG TABLET NG SCH (08:05)
[2018-07-07] MEDS: SODIUM CHLORIDE FLUSH 10ML SYR IVF SCH ×2 (08:05→21:30)
[2018-07-07] MEDS: ASPIRIN 81 MG TABLET CHEW NG SCH (08:06)
[2018-07-07] MEDS ORDERED: AMIODARONE 200 MG TABLET PO SCH (10:30)
[2018-07-07 12:56] LABS: CHLORIDE 113 mmol/L (98-107)
[2018-07-07 12:58] LABS: CALCIUM 9.2 mg/dL (8.5-10.1); CREATININE 0.91 mg/dL (0.7-1.3)
[2018-07-07 12:59] LABS: ANION GAP 6 mmol/L (5-15)
[2018-07-07 14:30] VITALS: BP 160/85
[2018-07-07] MEDS ORDERED: TPN PER PHARMACY MC PRN (15:00)
--- NOTE | 2018-07-07 15:11 | NUR ---
NPO. New Graham sheet is placed in room with NPO status, swallow precautions and strategies. Addendum: 07/07/18 at 1521 by DOREEN CAZARES Amended: Links added.
[2018-07-07] MEDS ORDERED: FILTER, DISP 1.2 MICRON FOR TPN/PVN IV PRN (16:00)
[2018-07-07] MEDS ORDERED: DEXTROSE 10% 500 ML IV PRN (17:00)
[2018-07-07] MEDS ORDERED: SMOF TPN IV SCH (17:00)
[2018-07-07] MEDS ORDERED: DEXTROSE 50%, 50ML SYRINGE IVPush PRN (17:00)
[2018-07-07] MEDS ORDERED: FAT EMUL IV SCH (17:00)
[2018-07-07] MEDS ORDERED: [UNRECOGNIZED DRUG - OTHER] IV SCH (17:00)
[2018-07-07] MEDS ORDERED: DEXTROSE 70% IV SCH (17:00)
[2018-07-07] MEDS ORDERED: AMINO ACID 10% IV SCH (17:00)
[2018-07-07] MEDS: CARVEDILOL 6.25 MG TABLET NG SCH (18:00)
[2018-07-07 20:24] VITALS: BP 156/96
[2018-07-07] MEDS: INSULIN REGULAR LOW DOSE Q6H X 48HRS SQ-INSULIN SCH (21:31)
[2018-07-07] MEDS: ATORVASTATIN 40 MG TABLET NG SCH (21:31)
[2018-07-08 02:00] VITALS: BP 161/78
[2018-07-08] MEDS: AMPICILLIN/SULBACTAM 1,500 MG in SODIUM CHLORIDE 0.9% 50 ML IV SCH ×2 (02:30→14:30)
[2018-07-08] MEDS: INSULIN REGULAR LOW DOSE Q6H X 48HRS SQ-INSULIN SCH ×3 (03:36→15:00)
[2018-07-08 03:49] VITALS: BP 160/86
[2018-07-08] MEDS: CARVEDILOL 6.25 MG TABLET NG SCH ×2 (05:43→18:47)
[2018-07-08 07:18] LABS: CHLORIDE 111 mmol/L (98-107)
[2018-07-08 07:27] LABS: ANION GAP 5 mmol/L (5-15); CALCIUM 8.6 mg/dL (8.5-10.1); CREATININE 0.85 mg/dL (0.7-1.3); PREALBUMIN 8.1 mg/dL (20.0-40.0); TRIGLYCERIDES 96 mg/dL (50-200)
[2018-07-08] MEDS: ASPIRIN 81 MG TABLET CHEW NG SCH (08:36)
[2018-07-08] MEDS: SODIUM CHLORIDE FLUSH 10ML SYR IVF SCH ×2 (08:36→21:54)
[2018-07-08] MEDS: ENOXAPARIN 40 MG/0.4 ML SQ SCH (08:36)
[2018-07-08] MEDS: DOCUSATE 50 MG/5 ML, 10ML UDC NG SCH ×2 (08:36→21:53)
[2018-07-08] MEDS: LOSARTAN 25MG TABLET NG SCH (08:36)
[2018-07-08] MEDS: OMEPRAZOLE 20 MG CAPSULE.DR NG SCH (08:37)
[2018-07-08] MEDS: CLOPIDOGREL 75 MG TABLET NG SCH (08:37)
[2018-07-08] MEDS: HYDROCHLOROTHIAZIDE 25 MG TABLET NG SCH (08:37)
[2018-07-08] MEDS ORDERED: FENTANYL PF 100 MCG/2ML ONE (14:43)
[2018-07-08] MEDS ORDERED: MIDAZOLAM 1 MG/ML, 5ML ONE (14:44)
[2018-07-08] MEDS ORDERED: SMOF TPN IV SCH ×2 (17:00)
[2018-07-08] MEDS ORDERED: [UNRECOGNIZED DRUG - OTHER] IV SCH ×2 (17:00)
[2018-07-08] MEDS ORDERED: FAT EMUL IV SCH ×2 (17:00)
[2018-07-08] MEDS ORDERED: AMINO ACID 10% IV SCH ×2 (17:00)
[2018-07-08] MEDS ORDERED: DEXTROSE 70% IV SCH ×2 (17:00)
[2018-07-08 19:53] VITALS: BP 135/88
[2018-07-08] MEDS: ATORVASTATIN 40 MG TABLET NG SCH (21:54)
[2018-07-09 01:48] VITALS: BP 125/68
[2018-07-09] MEDS: AMPICILLIN/SULBACTAM 1,500 MG in SODIUM CHLORIDE 0.9% 50 ML IV SCH ×2 (02:16→15:05)
[2018-07-09 05:07] LABS: ANION GAP 6 mmol/L (5-15); CALCIUM 7.9 mg/dL (8.5-10.1); CHLORIDE 112 mmol/L (98-107); CREATININE 0.78 mg/dL (0.7-1.3)
[2018-07-09] MEDS: CARVEDILOL 6.25 MG TABLET NG SCH ×2 (05:55→18:01)
[2018-07-09 08:49] VITALS: BP 129/81
[2018-07-09] MEDS: LOSARTAN 25MG TABLET NG SCH (09:31)
[2018-07-09] MEDS: DOCUSATE 50 MG/5 ML, 10ML UDC NG SCH ×2 (09:31→20:54)
[2018-07-09] MEDS: ENOXAPARIN 40 MG/0.4 ML SQ SCH (09:31)
[2018-07-09] MEDS: ASPIRIN 81 MG TABLET CHEW NG SCH (09:32)
[2018-07-09] MEDS: HYDROCHLOROTHIAZIDE 25 MG TABLET NG SCH (09:32)
[2018-07-09] MEDS: OMEPRAZOLE 20 MG CAPSULE.DR NG SCH (09:33)
[2018-07-09] MEDS: CLOPIDOGREL 75 MG TABLET NG SCH (09:33)
[2018-07-09] MEDS: SODIUM CHLORIDE FLUSH 10ML SYR IVF SCH ×2 (09:40→20:54)
[2018-07-09 14:12] VITALS: BP 124/75
[2018-07-09 19:35] VITALS: BP 122/80
[2018-07-09] MEDS: ATORVASTATIN 40 MG TABLET NG SCH (20:54)
[2018-07-09] MEDS ORDERED: INSULIN REGULAR LOW DOSE QDAY SQ-INSULIN SCH (21:00)
[2018-07-10 01:33] VITALS: BP 117/75
[2018-07-10] MEDS: AMPICILLIN/SULBACTAM 1,500 MG in SODIUM CHLORIDE 0.9% 50 ML IV SCH (03:57)
[2018-07-10] MEDS: CARVEDILOL 6.25 MG TABLET NG SCH ×2 (06:25→17:53)
[2018-07-10 07:08] VITALS: BP 136/85
[2018-07-10] MEDS: ENOXAPARIN 40 MG/0.4 ML SQ SCH (08:51)
[2018-07-10] MEDS: HYDROCHLOROTHIAZIDE 25 MG TABLET NG SCH (08:51)
[2018-07-10] MEDS: OMEPRAZOLE 20 MG CAPSULE.DR NG SCH (08:52)
[2018-07-10] MEDS: LOSARTAN 25MG TABLET NG SCH (08:52)
[2018-07-10] MEDS: DOCUSATE 50 MG/5 ML, 10ML UDC NG SCH ×2 (08:52→20:41)
[2018-07-10] MEDS: CLOPIDOGREL 75 MG TABLET NG SCH (08:52)
[2018-07-10] MEDS: SODIUM CHLORIDE FLUSH 10ML SYR IVF SCH ×2 (08:53→20:41)
[2018-07-10] MEDS: ASPIRIN 81 MG TABLET CHEW NG SCH (08:53)
[2018-07-10 13:45] VITALS: BP 108/80
[2018-07-10] MEDS: FILTER 0.22 MICRON (AMIODARONE) IV PRN (15:30)
[2018-07-10] MEDS ORDERED: AMIODARONE 150 MG in DEXTROSE 5% 100 ML IV ONE (15:30)
[2018-07-10] MEDS ORDERED: AMIODARONE 900 MG in DEXTROSE 5% 482 ML IV PRN (15:45)
[2018-07-10] MEDS ORDERED: POTASSIUM CHLORIDE 20 MEQ TAB.ER.PRT PO ONE (16:00)
[2018-07-10] MEDS: AMPICILLIN/SULBACTAM 3 GM in SODIUM CHLORIDE 0.9% 100 ML IV SCH ×2 (17:53→18:35)
[2018-07-10 19:03] VITALS: BP 101/61
[2018-07-10] MEDS: ATORVASTATIN 40 MG TABLET NG SCH (20:41)
[2018-07-11] MEDS: AMPICILLIN/SULBACTAM 3 GM in SODIUM CHLORIDE 0.9% 100 ML IV SCH ×4 (00:54→16:35)
[2018-07-11 02:53] VITALS: BP 121/76
[2018-07-11] MEDS: CARVEDILOL 6.25 MG TABLET NG SCH (06:00)
[2018-07-11 07:10] VITALS: BP 99/55
[2018-07-11 07:30] VITALS: BP 125/70
[2018-07-11 08:30] LABS: ALBUMIN 2.3 g/dL (3.4-5.0); ANION GAP 5 mmol/L (5-15); CALCIUM 8.5 mg/dL (8.5-10.1); CHLORIDE 106 mmol/L (98-107)
[2018-07-11 08:31] LABS: MEAN CORPUSCULAR HEMOGLOBIN 29.3 pg (27.5-34.5); MEAN CORPUSCULAR HGB CONC 32.9 g/dL (33.2-36.2); MEAN CORPUSCULAR VOLUME 89.1 fL (81-97); RED BLOOD COUNT 3.45 x10^6/uL (4.38-5.82); RED CELL DISTRIBUTION WIDTH 14.4 % (9.4-14.8)
[2018-07-11 08:39] LABS: MEAN PLATELET VOLUME 7.6 fL (7.4-10.4); PLATELET COUNT 368 x10^3/uL (130-400)
[2018-07-11 08:40] LABS: BASOPHILS # (AUTO) 0.05 x10^3/uL (0-0.1); BASOPHILS % (AUTO) 0 % (0-1); EOSINOPHILS % (AUTO) 3 % (1-7); LYMPHOCYTES # (AUTO) 1.24 x10^3/uL (1-3.4); LYMPHOCYTES % (AUTO) 12 % (22-44); MD SCAN; MONOCYTES % (AUTO) 10 % (2-9); NEUTROPHILS # (AUTO) 7.83 x10^3/uL (1.8-6.8); NEUTROPHILS % (AUTO) 75 % (42-75)
[2018-07-11 08:56] LABS: ALANINE AMINOTRANSFERASE 30 U/L (12-78); ALKALINE PHOSPHATASE 97 U/L (45-117); BILIRUBIN,TOTAL 0.8 mg/dL (0.2-1.0); CREATININE 0.88 mg/dL (0.7-1.3); FREE T4 (FREE THYROXINE) 1.41 ng/dL (0.76-1.46); PREALBUMIN 9.8 mg/dL (20.0-40.0); TOTAL PROTEIN 6.2 g/dL (6.4-8.2)
[2018-07-11] MEDS: LOSARTAN 25MG TABLET NG SCH (09:00)
[2018-07-11] MEDS: CLOPIDOGREL 75 MG TABLET NG SCH (09:00)
[2018-07-11] MEDS: OMEPRAZOLE 20 MG CAPSULE.DR NG SCH (09:00)
[2018-07-11] MEDS: ASPIRIN 81 MG TABLET CHEW NG SCH (09:00)
[2018-07-11] MEDS: DOCUSATE 50 MG/5 ML, 10ML UDC NG SCH (09:00)
[2018-07-11] MEDS: HYDROCHLOROTHIAZIDE 25 MG TABLET NG SCH (09:00)
[2018-07-11] MEDS: ENOXAPARIN 40 MG/0.4 ML SQ SCH (09:32)
[2018-07-11] MEDS: SODIUM CHLORIDE FLUSH 10ML SYR IVF SCH ×2 (09:33→21:02)
[2018-07-11] MEDS ORDERED: TPN PER PHARMACY MC PRN (13:30)
[2018-07-11 13:31] LABS: HEMOGLOBIN A1C 5.3 % (4.2-6.3)
[2018-07-11 13:44] VITALS: BP 115/81
[2018-07-11] MEDS ORDERED: ASPIRIN 81 MG TABLET CHEW PO SCH (15:15)
[2018-07-11] MEDS ORDERED: OMEPRAZOLE 20 MG CAPSULE.DR PO SCH (15:18)
[2018-07-11] MEDS ORDERED: HYDROcodone/APAP 10/325 MG TABLET PO PRN (15:18)
[2018-07-11] MEDS ORDERED: MAGNESIUM HYDROXIDE 8%, 30ML UDC PO PRN (15:19)
[2018-07-11] MEDS ORDERED: AMIODARONE 900 MG in DEXTROSE 5% 482 ML IV PRN (15:45)
[2018-07-11] MEDS: CARVEDILOL 6.25 MG TABLET PO SCH ×2 (16:34→17:03)
[2018-07-11] MEDS: FILTER, DISP 1.2 MICRON FOR TPN/PVN IV PRN (16:35)
[2018-07-11] MEDS ORDERED: DEXTROSE 50%, 50ML SYRINGE IVPush PRN (17:00)
[2018-07-11] MEDS ORDERED: AMINO ACID 10% IV SCH (17:00)
[2018-07-11] MEDS ORDERED: [UNRECOGNIZED DRUG - OTHER] IV SCH (17:00)
[2018-07-11] MEDS ORDERED: DEXTROSE 70% IV SCH (17:00)
[2018-07-11] MEDS ORDERED: DEXTROSE 10% 500 ML IV PRN (17:00)
[2018-07-11] MEDS ORDERED: FAT EMUL IV SCH (17:00)
[2018-07-11] MEDS ORDERED: SMOF TPN IV SCH (17:00)
[2018-07-11 19:30] VITALS: BP 106/69
[2018-07-11] MEDS: ATORVASTATIN 40 MG TABLET PO SCH (21:00)
[2018-07-11] MEDS: DOCUSATE 50 MG/5 ML, 10ML UDC PO SCH (21:00)
[2018-07-11] MEDS: INSULIN REGULAR MEDIUM DOSE Q6H X 48HRS SQ-INSULIN SCH (21:00)
[2018-07-11] MEDS: FILTER 0.22 MICRON (AMIODARONE) IV PRN (22:17)
[2018-07-12] MEDS: AMPICILLIN/SULBACTAM 3 GM in SODIUM CHLORIDE 0.9% 100 ML IV SCH ×4 (00:19→18:06)
[2018-07-12 02:35] VITALS: BP 110/80
[2018-07-12] MEDS: INSULIN REGULAR MEDIUM DOSE Q6H X 48HRS SQ-INSULIN SCH (03:00)
[2018-07-12] MEDS: CARVEDILOL 6.25 MG TABLET PO SCH ×2 (05:48→16:41)
[2018-07-12 06:11] LABS: ANION GAP 6 mmol/L (5-15); CALCIUM 8.1 mg/dL (8.5-10.1); CHLORIDE 107 mmol/L (98-107)
[2018-07-12 06:14] LABS: CREATININE 0.88 mg/dL (0.7-1.3); TRIGLYCERIDES 79 mg/dL (50-200)
[2018-07-12 06:40] VITALS: BP 134/79
[2018-07-12] MEDS: CLOPIDOGREL 75 MG TABLET PO SCH (09:00)
[2018-07-12] MEDS: DOCUSATE 50 MG/5 ML, 10ML UDC PO SCH ×2 (09:00→19:58)
[2018-07-12] MEDS: HYDROCHLOROTHIAZIDE 25 MG TABLET PO SCH (09:00)
[2018-07-12] MEDS: LOSARTAN 25MG TABLET PO SCH (09:00)
[2018-07-12] MEDS: ENOXAPARIN 40 MG/0.4 ML SQ SCH (09:17)
[2018-07-12] MEDS: SODIUM CHLORIDE FLUSH 10ML SYR IVF SCH ×2 (09:17→19:58)
[2018-07-12] MEDS: ASPIRIN 300 MG SUPP PR SCH (10:11)
[2018-07-12] MEDS ORDERED: AMIODARONE 900 MG in DEXTROSE 5% 482 ML IV SCH ×2 (11:00→11:30)
[2018-07-12 13:25] VITALS: BP 109/68
[2018-07-12] MEDS: FILTER, DISP 1.2 MICRON FOR TPN/PVN IV PRN (16:34)
[2018-07-12] MEDS ORDERED: DEXTROSE 70% IV SCH (17:00)
[2018-07-12] MEDS ORDERED: FAT EMUL IV SCH (17:00)
[2018-07-12] MEDS ORDERED: SMOF TPN IV SCH (17:00)
[2018-07-12] MEDS ORDERED: AMINO ACID 10% IV SCH (17:00)
[2018-07-12] MEDS ORDERED: [UNRECOGNIZED DRUG - OTHER] IV SCH (17:00)
[2018-07-12] MEDS: ATORVASTATIN 40 MG TABLET PO SCH (19:59)
[2018-07-12 20:03] VITALS: BP 121/61
[2018-07-13] MEDS: AMPICILLIN/SULBACTAM 3 GM in SODIUM CHLORIDE 0.9% 100 ML IV SCH ×4 (00:09→18:14)
[2018-07-13 02:28] VITALS: BP 121/76
[2018-07-13 05:26] LABS: BASOPHILS # (AUTO) 0.04 x10^3/uL (0-0.1); BASOPHILS % (AUTO) 0 % (0-1); EOSINOPHILS # (AUTO) 0.28 x10^3/uL (0-0.4); EOSINOPHILS % (AUTO) 3 % (1-7); LYMPHOCYTES # (AUTO) 1.03 x10^3/uL (1-3.4); LYMPHOCYTES % (AUTO) 11 % (22-44); MD NO; MEAN CORPUSCULAR HEMOGLOBIN 30.1 pg (27.5-34.5); MEAN CORPUSCULAR HGB CONC 33.8 g/dL (33.2-36.2); MEAN CORPUSCULAR VOLUME 89.2 fL (81-97); MEAN PLATELET VOLUME 7.7 fL (7.4-10.4); MONOCYTES % (AUTO) 12 % (2-9); NEUTROPHILS % (AUTO) 74 % (42-75); PLATELET COUNT 338 x10^3/uL (130-400); RED BLOOD COUNT 2.97 x10^6/uL (4.38-5.82); RED CELL DISTRIBUTION WIDTH 14.1 % (9.4-14.8)
[2018-07-13 05:28] LABS: ALANINE AMINOTRANSFERASE 21 U/L (12-78); ANION GAP 5 mmol/L (5-15); CHLORIDE 109 mmol/L (98-107); CREATININE 0.84 mg/dL (0.7-1.3)
[2018-07-13 05:30] LABS: ALKALINE PHOSPHATASE 84 U/L (45-117); BILIRUBIN,TOTAL 0.5 mg/dL (0.2-1.0); TOTAL PROTEIN 5.5 g/dL (6.4-8.2)
[2018-07-13] MEDS: CARVEDILOL 6.25 MG TABLET PO SCH ×2 (05:41→18:00)
[2018-07-13 06:40] VITALS: BP 132/82
[2018-07-13] MEDS: HYDROCHLOROTHIAZIDE 25 MG TABLET PO SCH (09:00)
[2018-07-13] MEDS: DOCUSATE 50 MG/5 ML, 10ML UDC PO SCH ×2 (09:00→19:48)
[2018-07-13] MEDS: LOSARTAN 25MG TABLET PO SCH (09:00)
[2018-07-13] MEDS: CLOPIDOGREL 75 MG TABLET PO SCH (09:00)
[2018-07-13] MEDS: SODIUM CHLORIDE FLUSH 10ML SYR IVF SCH ×2 (10:02→20:30)
[2018-07-13] MEDS: ENOXAPARIN 40 MG/0.4 ML SQ SCH (10:02)
[2018-07-13] MEDS: ASPIRIN 300 MG SUPP PR SCH (10:06)
[2018-07-13 13:00] VITALS: BP 135/84
[2018-07-13] MEDS: FILTER, DISP 1.2 MICRON FOR TPN/PVN IV PRN (16:41)
[2018-07-13] MEDS ORDERED: [UNRECOGNIZED DRUG - OTHER] IV SCH (17:00)
[2018-07-13] MEDS ORDERED: DEXTROSE 70% IV SCH (17:00)
[2018-07-13] MEDS ORDERED: FAT EMUL IV SCH (17:00)
[2018-07-13] MEDS ORDERED: AMINO ACID 10% IV SCH (17:00)
[2018-07-13] MEDS ORDERED: SMOF TPN IV SCH (17:00)
[2018-07-13 19:19] VITALS: BP 147/90
[2018-07-13] MEDS: ATORVASTATIN 40 MG TABLET PO SCH (19:48)
[2018-07-14 00:40] VITALS: BP 154/81
[2018-07-14] MEDS: AMPICILLIN/SULBACTAM 3 GM in SODIUM CHLORIDE 0.9% 100 ML IV SCH ×4 (00:40→19:09)
[2018-07-14] MEDS: CARVEDILOL 6.25 MG TABLET PO SCH ×2 (05:16→17:33)
[2018-07-14 06:22] LABS: ALANINE AMINOTRANSFERASE 27 U/L (12-78); ALBUMIN 2.1 g/dL (3.4-5.0); ANION GAP 4 mmol/L (5-15); CALCIUM 8.1 mg/dL (8.5-10.1); CHLORIDE 110 mmol/L (98-107)
[2018-07-14 06:26] LABS: ALKALINE PHOSPHATASE 86 U/L (45-117); BILIRUBIN,TOTAL 0.5 mg/dL (0.2-1.0); PREALBUMIN 8.7 mg/dL (20.0-40.0); TOTAL PROTEIN 6.4 g/dL (6.4-8.2)
[2018-07-14 07:35] VITALS: BP 136/76
[2018-07-14] MEDS: ASPIRIN 300 MG SUPP PR SCH (09:45)
[2018-07-14] MEDS: ENOXAPARIN 40 MG/0.4 ML SQ SCH (09:45)
[2018-07-14] MEDS: SODIUM CHLORIDE FLUSH 10ML SYR IVF SCH ×2 (09:45→20:00)
[2018-07-14] MEDS: DOCUSATE 50 MG/5 ML, 10ML UDC PO SCH ×2 (09:46→21:00)
[2018-07-14] MEDS: HYDROCHLOROTHIAZIDE 25 MG TABLET PO SCH (09:47)
[2018-07-14] MEDS: CLOPIDOGREL 75 MG TABLET PO SCH (09:47)
[2018-07-14] MEDS: LOSARTAN 25MG TABLET PO SCH (09:47)
[2018-07-14] MEDS: INSULIN REGULAR MEDIUM DOSE QDAY SQ-INSULIN SCH (09:53)
[2018-07-14 13:32] VITALS: BP 122/83
[2018-07-14] MEDS: FILTER, DISP 1.2 MICRON FOR TPN/PVN IV PRN (16:25)
[2018-07-14] MEDS ORDERED: AMINO ACID 10% IV SCH ×2 (17:00)
[2018-07-14] MEDS ORDERED: [UNRECOGNIZED DRUG - OTHER] IV SCH (17:00)
[2018-07-14] MEDS ORDERED: FAT EMUL IV SCH ×2 (17:00)
[2018-07-14] MEDS ORDERED: SMOF TPN IV SCH ×2 (17:00)
[2018-07-14] MEDS ORDERED: [UNRECOGNIZED DRUG - OTHER] IV SCH (17:00)
[2018-07-14] MEDS ORDERED: DEXTROSE 70% IV SCH ×2 (17:00)
[2018-07-14 20:23] VITALS: BP 137/84
[2018-07-14] MEDS: ATORVASTATIN 40 MG TABLET PO SCH (21:00)
[2018-07-15 01:12] VITALS: BP 136/85
[2018-07-15] MEDS: AMPICILLIN/SULBACTAM 3 GM in SODIUM CHLORIDE 0.9% 100 ML IV SCH ×4 (01:14→20:21)
[2018-07-15] MEDS: CARVEDILOL 6.25 MG TABLET PO SCH ×3 (06:00→22:24)
[2018-07-15 07:52] VITALS: BP 132/80
[2018-07-15 09:22] LABS: ANION GAP 7 mmol/L (5-15); CALCIUM 8.6 mg/dL (8.5-10.1); CHLORIDE 109 mmol/L (98-107); CREATININE 0.75 mg/dL (0.7-1.3)
[2018-07-15] MEDS: ASPIRIN 300 MG SUPP PR SCH ×2 (09:30→22:24)
[2018-07-15] MEDS: DOCUSATE 50 MG/5 ML, 10ML UDC PO SCH ×2 (09:30→20:22)
[2018-07-15] MEDS: ENOXAPARIN 40 MG/0.4 ML SQ SCH ×2 (09:30→22:24)
[2018-07-15] MEDS: LOSARTAN 25MG TABLET PO SCH (09:30)
[2018-07-15] MEDS: HYDROCHLOROTHIAZIDE 25 MG TABLET PO SCH (09:30)
[2018-07-15] MEDS: CLOPIDOGREL 75 MG TABLET PO SCH (09:30)
[2018-07-15] MEDS: SODIUM CHLORIDE FLUSH 10ML SYR IVF SCH ×2 (09:40→20:22)
[2018-07-15] MEDS: INSULIN REGULAR MEDIUM DOSE QDAY SQ-INSULIN SCH (10:00)
[2018-07-15 12:47] VITALS: BP 109/76
[2018-07-15] MEDS ORDERED: [UNRECOGNIZED DRUG - OTHER] IV SCH (17:00)
[2018-07-15] MEDS ORDERED: AMINO ACID 10% IV SCH (17:00)
[2018-07-15] MEDS ORDERED: SMOF TPN IV SCH (17:00)
[2018-07-15] MEDS ORDERED: FAT EMUL IV SCH (17:00)
[2018-07-15] MEDS ORDERED: DEXTROSE 70% IV SCH (17:00)
[2018-07-15 20:11] VITALS: BP 116/82
[2018-07-15] MEDS: ATORVASTATIN 40 MG TABLET PO SCH (20:23)
[2018-07-16 01:47] VITALS: BP 119/81
[2018-07-16] MEDS: AMPICILLIN/SULBACTAM 3 GM in SODIUM CHLORIDE 0.9% 100 ML IV SCH ×3 (02:19→15:43)
[2018-07-16 05:34] LABS: BASOPHILS # (AUTO) 0.09 x10^3/uL (0-0.1); BASOPHILS % (AUTO) 1 % (0-1); EOSINOPHILS # (AUTO) 0.35 x10^3/uL (0-0.4); EOSINOPHILS % (AUTO) 4 % (1-7); LYMPHOCYTES % (AUTO) 13 % (22-44); MD NO; MEAN CORPUSCULAR HGB CONC 33.5 g/dL (33.2-36.2); MEAN CORPUSCULAR VOLUME 89.4 fL (81-97); MEAN PLATELET VOLUME 7.7 fL (7.4-10.4); MONOCYTES # (AUTO) 0.87 x10^3/uL (0.2-0.8); MONOCYTES % (AUTO) 11 % (2-9); NEUTROPHILS # (AUTO) 5.82 x10^3/uL (1.8-6.8); NEUTROPHILS % (AUTO) 71 % (42-75); PLATELET COUNT 395 x10^3/uL (130-400); RED BLOOD COUNT 3.16 x10^6/uL (4.38-5.82); RED CELL DISTRIBUTION WIDTH 14.2 % (9.4-14.8)
[2018-07-16 05:44] LABS: ALBUMIN 2.1 g/dL (3.4-5.0); ANION GAP 4 mmol/L (5-15); CALCIUM 8.3 mg/dL (8.5-10.1); CHLORIDE 109 mmol/L (98-107)
[2018-07-16 05:52] LABS: ALANINE AMINOTRANSFERASE 24 U/L (12-78); ALKALINE PHOSPHATASE 90 U/L (45-117); BILIRUBIN,TOTAL 0.5 mg/dL (0.2-1.0); CREATININE 0.76 mg/dL (0.7-1.3); PREALBUMIN 10.5 mg/dL (20.0-40.0); TOTAL PROTEIN 6.4 g/dL (6.4-8.2)
[2018-07-16 07:14] VITALS: BP 127/77
[2018-07-16] MEDS: LOSARTAN 25MG TABLET PO SCH (07:51)
[2018-07-16] MEDS: DOCUSATE 50 MG/5 ML, 10ML UDC PO SCH ×2 (07:51→21:00)
[2018-07-16] MEDS: HYDROCHLOROTHIAZIDE 25 MG TABLET PO SCH (07:51)
[2018-07-16] MEDS: CLOPIDOGREL 75 MG TABLET PO SCH (07:52)
[2018-07-16] MEDS: INSULIN REGULAR MEDIUM DOSE QDAY SQ-INSULIN SCH (09:00)
[2018-07-16] MEDS: SODIUM CHLORIDE FLUSH 10ML SYR IVF SCH ×2 (09:40→21:53)
[2018-07-16] MEDS ORDERED: FENTANYL PF 250 MCG/5ML ONE (10:24)
[2018-07-16] MEDS ORDERED: MIDAZOLAM 1 MG/ML, 2ML ONE (10:24)
[2018-07-16] MEDS ORDERED: ROCURONIUM 10MG/ML,5ML ONE (10:25)
[2018-07-16] MEDS ORDERED: PROPOFOL 10 MG/ML, 20ML ONE (10:25)
[2018-07-16] MEDS ORDERED: GLYCOPYRROLATE 0.4 MG/2 ML, 2ML ONE (10:26)
[2018-07-16] MEDS ORDERED: NEOSTIGMINE 1 MG/ML, 10ML ONE (10:26)
[2018-07-16] MEDS ORDERED: BUPIVACAINE/PF 0.5% ONE (10:27)
[2018-07-16] MEDS ORDERED: CEFAZOLIN 1,000 MG ONE ×2 (10:27)
[2018-07-16] MEDS ORDERED: SODIUM CHLORIDE 0.9% PF 10ML ONE (10:27)
[2018-07-16] MEDS ORDERED: HYDROmorphone 2 MG/ML, 1ML IVPush PRN (11:00)
[2018-07-16] MEDS ORDERED: MEPERIDINE/PF 25MG/0.5ML IVPush PRN (11:00)
[2018-07-16] MEDS ORDERED: ONDANSETRON ODT 8 MG PO PRN (11:00)
[2018-07-16] MEDS ORDERED: hydrALAzine 20 MG/ML, 1ML IV PRN (11:00)
[2018-07-16] MEDS ORDERED: PROMETHAZINE 25 MG/ML, 1ML IM PRN ×2 (11:00)
[2018-07-16] MEDS ORDERED: MORPHINE SULFATE 4 MG/ML, 1ML IVPush PRN (11:00)
[2018-07-16] MEDS ORDERED: PROMETHAZINE 25 MG SUPP PR PRN (11:00)
[2018-07-16] MEDS ORDERED: FENTANYL PF 100 MCG/2ML IV PRN (11:00)
[2018-07-16] MEDS ORDERED: PROMETHAZINE 25 MG/ML, 1ML IV PRN (11:00)
[2018-07-16] MEDS ORDERED: OXYcodone 5 MG/5 ML ORAL.SOL UDC PO PRN (11:00)
[2018-07-16] MEDS ORDERED: LABETALOL 5MG/ML, 20ML IV PRN (11:00)
[2018-07-16] MEDS ORDERED: ONDANSETRON 2MG/ML, 2ML IV PRN (11:00)
[2018-07-16] MEDS ORDERED: PROMETHAZINE 12.5 MG SUPP PR PRN (11:00)
[2018-07-16 12:37] VITALS: BP 126/81
[2018-07-16] MEDS ORDERED: ALBUTEROL SULFATE 2.5 MG/3 ML ONE (14:20)
[2018-07-16] MEDS: CARVEDILOL 6.25 MG TABLET PO SCH ×2 (16:20→23:32)
[2018-07-16] MEDS ORDERED: AMINO ACID 10% IV SCH (17:00)
[2018-07-16] MEDS ORDERED: SMOF TPN IV SCH (17:00)
[2018-07-16] MEDS ORDERED: [UNRECOGNIZED DRUG - OTHER] IV SCH (17:00)
[2018-07-16] MEDS ORDERED: DEXTROSE 70% IV SCH (17:00)
[2018-07-16] MEDS ORDERED: FAT EMUL IV SCH (17:00)
[2018-07-16] MEDS: FILTER, DISP 1.2 MICRON FOR TPN/PVN IV PRN (18:18)
[2018-07-16 20:41] VITALS: BP 126/76
[2018-07-16] MEDS: ATORVASTATIN 40 MG TABLET PO SCH (21:00)
[2018-07-17 01:24] VITALS: BP 144/81
[2018-07-17 06:02] LABS: ANION GAP 6 mmol/L (5-15); CALCIUM 8.2 mg/dL (8.5-10.1); CHLORIDE 108 mmol/L (98-107)
[2018-07-17 06:04] LABS: CREATININE 0.76 mg/dL (0.7-1.3)
[2018-07-17 07:54] VITALS: BP 149/82
[2018-07-17 08:33] LABS: BASOPHILS # (AUTO) 0.04 x10^3/uL (0-0.1); BASOPHILS % (AUTO) 0 % (0-1); EOSINOPHILS # (AUTO) 0.26 x10^3/uL (0-0.4); EOSINOPHILS % (AUTO) 3 % (1-7); LYMPHOCYTES # (AUTO) 0.68 x10^3/uL (1-3.4); LYMPHOCYTES % (AUTO) 7 % (22-44); MD NO; MEAN CORPUSCULAR HEMOGLOBIN 28.5 pg (27.5-34.5); MEAN CORPUSCULAR HGB CONC 32.1 g/dL (33.2-36.2); MEAN CORPUSCULAR VOLUME 88.8 fL (81-97); MEAN PLATELET VOLUME 7.7 fL (7.4-10.4); MONOCYTES # (AUTO) 0.87 x10^3/uL (0.2-0.8); MONOCYTES % (AUTO) 9 % (2-9); NEUTROPHILS # (AUTO) 7.72 x10^3/uL (1.8-6.8); NEUTROPHILS % (AUTO) 81 % (42-75); PLATELET COUNT 427 x10^3/uL (130-400); RED BLOOD COUNT 3.22 x10^6/uL (4.38-5.82); RED CELL DISTRIBUTION WIDTH 14.4 % (9.4-14.8)
[2018-07-17] MEDS: HYDROCHLOROTHIAZIDE 25 MG TABLET PO SCH (08:47)
[2018-07-17] MEDS: LOSARTAN 25MG TABLET PO SCH (08:47)
[2018-07-17] MEDS: DOCUSATE 50 MG/5 ML, 10ML UDC PO SCH ×2 (08:47→22:01)
[2018-07-17] MEDS: INSULIN REGULAR MEDIUM DOSE QDAY SQ-INSULIN SCH (08:49)
[2018-07-17] MEDS: ASPIRIN 300 MG SUPP PR SCH (09:31)
[2018-07-17] MEDS: SODIUM CHLORIDE FLUSH 10ML SYR IVF SCH ×2 (09:31→22:02)
[2018-07-17 15:52] VITALS: BP 129/82
[2018-07-17] MEDS ORDERED: AMINO ACID 10% IV SCH (17:00)
[2018-07-17] MEDS ORDERED: SMOF TPN IV SCH (17:00)
[2018-07-17] MEDS ORDERED: DEXTROSE 70% IV SCH (17:00)
[2018-07-17] MEDS ORDERED: FAT EMUL IV SCH (17:00)
[2018-07-17] MEDS ORDERED: [UNRECOGNIZED DRUG - OTHER] IV SCH (17:00)
[2018-07-17] MEDS: FILTER, DISP 1.2 MICRON FOR TPN/PVN IV PRN (17:38)
[2018-07-17 20:30] VITALS: BP 133/86
[2018-07-17] MEDS ORDERED: DILTIAZEM 5 MG/ML, 5ML IVPush ONE ×3 (21:00→23:00)
[2018-07-17] MEDS: CARVEDILOL 6.25 MG TABLET PO SCH (22:01)
[2018-07-17] MEDS: ATORVASTATIN 40 MG TABLET PO SCH (22:01)
[2018-07-17] MEDS: ENOXAPARIN 40 MG/0.4 ML SQ SCH (22:01)
[2018-07-17] MEDS ORDERED: SODIUM CHLORIDE 0.9%, 250ML IVBOLUS ONE (23:30)
[2018-07-18] MEDS ORDERED: SODIUM CHLORIDE 0.9%, 500ML IVBOLUS ONE ×2 (01:00→08:00)
[2018-07-18 01:19] VITALS: BP 88/52
[2018-07-18] MEDS ORDERED: DIGOXIN 0.25 MG/ML, 2ML IVPush ONE ×2 (04:30→10:30)
[2018-07-18] MEDS ORDERED: SODIUM CHLORIDE 0.9% 1,000ML IVBOLUS ONE (04:30)
[2018-07-18 06:09] LABS: BASOPHILS # (AUTO) 0.05 x10^3/uL (0-0.1); BASOPHILS % (AUTO) 1 % (0-1); EOSINOPHILS # (AUTO) 0.35 x10^3/uL (0-0.4); EOSINOPHILS % (AUTO) 4 % (1-7); LYMPHOCYTES % (AUTO) 9 % (22-44); MD NO; MEAN CORPUSCULAR HEMOGLOBIN 30.2 pg (27.5-34.5); MEAN CORPUSCULAR VOLUME 88.8 fL (81-97); MEAN PLATELET VOLUME 7.9 fL (7.4-10.4); MONOCYTES # (AUTO) 0.93 x10^3/uL (0.2-0.8); MONOCYTES % (AUTO) 11 % (2-9); NEUTROPHILS # (AUTO) 6.24 x10^3/uL (1.8-6.8); NEUTROPHILS % (AUTO) 75 % (42-75); PLATELET COUNT 378 x10^3/uL (130-400); RED BLOOD COUNT 3.12 x10^6/uL (4.38-5.82); RED CELL DISTRIBUTION WIDTH 14.2 % (9.4-14.8)
[2018-07-18 06:13] LABS: ANION GAP 6 mmol/L (5-15); CALCIUM 8.2 mg/dL (8.5-10.1); CHLORIDE 110 mmol/L (98-107); CREATININE 0.76 mg/dL (0.7-1.3)
[2018-07-18] MEDS: INSULIN REGULAR MEDIUM DOSE QDAY SQ-INSULIN SCH (07:28)
[2018-07-18] MEDS ORDERED: FILTER 0.22 MICRON IV PRN (07:30)
[2018-07-18] MEDS ORDERED: AMIODARONE 150 MG in DEXTROSE 5% 100 ML IV ONE (07:30)
[2018-07-18] MEDS: CARVEDILOL 6.25 MG TABLET PO SCH ×2 (07:55→17:30)
[2018-07-18 08:18] VITALS: BP 88/61
[2018-07-18] MEDS: AMIODARONE 900 MG in DEXTROSE 5% 482 ML IV PRN (08:18)
[2018-07-18] MEDS: SODIUM CHLORIDE FLUSH 10ML SYR IVF SCH ×2 (08:30→20:45)
[2018-07-18] MEDS: DOCUSATE 50 MG/5 ML, 10ML UDC PO SCH ×2 (09:04→20:45)
[2018-07-18] MEDS: CLOPIDOGREL 75 MG TABLET PO SCH (11:10)
[2018-07-18 14:00] VITALS: BP 120/75
[2018-07-18 19:54] VITALS: BP 109/76
[2018-07-18] MEDS: ATORVASTATIN 40 MG TABLET PO SCH (20:45)
[2018-07-18] MEDS: ENOXAPARIN 40 MG/0.4 ML SQ SCH (20:48)
[2018-07-19 03:36] VITALS: BP 94/62
[2018-07-19] MEDS: AMIODARONE 900 MG in DEXTROSE 5% 482 ML IV PRN (04:55)
[2018-07-19] MEDS: CARVEDILOL 6.25 MG TABLET PO SCH ×2 (05:06→18:01)
[2018-07-19] MEDS: ASPIRIN 81 MG TABLET CHEW PO SCH (05:07)
[2018-07-19 05:22] LABS: BASOPHILS # (AUTO) 0.05 x10^3/uL (0-0.1); BASOPHILS % (AUTO) 1 % (0-1); EOSINOPHILS # (AUTO) 0.49 x10^3/uL (0-0.4); EOSINOPHILS % (AUTO) 6 % (1-7); LYMPHOCYTES # (AUTO) 0.99 x10^3/uL (1-3.4); LYMPHOCYTES % (AUTO) 12 % (22-44); MD NO; MEAN CORPUSCULAR HEMOGLOBIN 29.9 pg (27.5-34.5); MEAN CORPUSCULAR HGB CONC 33.4 g/dL (33.2-36.2); MEAN CORPUSCULAR VOLUME 89.7 fL (81-97); MONOCYTES # (AUTO) 0.94 x10^3/uL (0.2-0.8); MONOCYTES % (AUTO) 12 % (2-9); NEUTROPHILS # (AUTO) 5.63 x10^3/uL (1.8-6.8); NEUTROPHILS % (AUTO) 70 % (42-75); PLATELET COUNT 376 x10^3/uL (130-400); RED BLOOD COUNT 3.12 x10^6/uL (4.38-5.82); RED CELL DISTRIBUTION WIDTH 14.4 % (9.4-14.8)
[2018-07-19 05:26] LABS: ANION GAP 5 mmol/L (5-15); CALCIUM 7.9 mg/dL (8.5-10.1); CHLORIDE 110 mmol/L (98-107); CREATININE 0.79 mg/dL (0.7-1.3)
[2018-07-19 07:55] VITALS: BP 101/65
[2018-07-19] MEDS ORDERED: AMIODARONE 150 MG in DEXTROSE 5% 100 ML IV ONE (08:30)
[2018-07-19] MEDS ORDERED: AMIODARONE 200 MG TABLET ONE (08:40)
[2018-07-19] MEDS: CLOPIDOGREL 75 MG TABLET PO SCH (08:47)
[2018-07-19] MEDS: SODIUM CHLORIDE FLUSH 10ML SYR IVF SCH ×2 (08:47→20:07)
[2018-07-19] MEDS: AMIODARONE 200 MG TABLET PO SCH ×2 (08:47→20:08)
[2018-07-19] MEDS: DOCUSATE 50 MG/5 ML, 10ML UDC PO SCH ×2 (08:49→20:08)
[2018-07-19 12:33] VITALS: BP 104/73
[2018-07-19] MEDS: ATORVASTATIN 40 MG TABLET PO SCH (20:08)
[2018-07-19] MEDS: ENOXAPARIN 40 MG/0.4 ML SQ SCH (20:08)
[2018-07-19 20:59] VITALS: BP 102/73
[2018-07-20 01:24] VITALS: BP 119/79
[2018-07-20] MEDS: ASPIRIN 81 MG TABLET CHEW PO SCH (05:04)
[2018-07-20] MEDS: CARVEDILOL 6.25 MG TABLET PO SCH (05:04)
[2018-07-20 05:29] LABS: BASOPHILS # (AUTO) 0.01 x10^3/uL (0-0.1); BASOPHILS % (AUTO) 0 % (0-1); EOSINOPHILS % (AUTO) 8 % (1-7); LYMPHOCYTES # (AUTO) 0.86 x10^3/uL (1-3.4); LYMPHOCYTES % (AUTO) 11 % (22-44); MD NO; MEAN CORPUSCULAR HEMOGLOBIN 29.1 pg (27.5-34.5); MEAN CORPUSCULAR HGB CONC 32.8 g/dL (33.2-36.2); MEAN CORPUSCULAR VOLUME 88.8 fL (81-97); MEAN PLATELET VOLUME 7.7 fL (7.4-10.4); MONOCYTES # (AUTO) 0.75 x10^3/uL (0.2-0.8); MONOCYTES % (AUTO) 10 % (2-9); NEUTROPHILS # (AUTO) 5.31 x10^3/uL (1.8-6.8); NEUTROPHILS % (AUTO) 71 % (42-75); PLATELET COUNT 392 x10^3/uL (130-400); RED BLOOD COUNT 3.27 x10^6/uL (4.38-5.82); RED CELL DISTRIBUTION WIDTH 13.9 % (9.4-14.8)
[2018-07-20 05:31] LABS: CHLORIDE 109 mmol/L (98-107)
[2018-07-20 05:38] LABS: ANION GAP 3 mmol/L (5-15); CREATININE 0.99 mg/dL (0.7-1.3)
[2018-07-20 07:49] VITALS: BP 111/75
[2018-07-20] MEDS ORDERED: AMIODARONE 900 MG in DEXTROSE 5% 482 ML IV PRN (08:51)
[2018-07-20] MEDS: AMIODARONE 200 MG TABLET PO SCH ×2 (09:08→20:28)
[2018-07-20] MEDS: SODIUM CHLORIDE FLUSH 10ML SYR IVF SCH ×2 (09:08→20:29)
[2018-07-20] MEDS: CLOPIDOGREL 75 MG TABLET PO SCH (09:08)
[2018-07-20] MEDS: DOCUSATE 50 MG/5 ML, 10ML UDC PO SCH ×2 (09:18→20:28)
[2018-07-20 14:00] VITALS: BP 136/88
[2018-07-20] MEDS: CARVEDILOL 3.125 MG TABLET PO SCH (17:07)
[2018-07-20 20:19] VITALS: BP 139/86
[2018-07-20] MEDS: ENOXAPARIN 40 MG/0.4 ML SQ SCH (20:28)
[2018-07-20] MEDS: ATORVASTATIN 40 MG TABLET PO SCH (20:28)
[2018-07-21 01:19] VITALS: BP 127/91
[2018-07-21] MEDS: CARVEDILOL 3.125 MG TABLET PO SCH ×2 (05:58→17:54)
[2018-07-21] MEDS: ASPIRIN 81 MG TABLET CHEW PO SCH (05:58)
[2018-07-21 06:33] LABS: BASOPHILS # (AUTO) 0.04 x10^3/uL (0-0.1); BASOPHILS % (AUTO) 1 % (0-1); EOSINOPHILS # (AUTO) 0.51 x10^3/uL (0-0.4); EOSINOPHILS % (AUTO) 10 % (1-7); LYMPHOCYTES # (AUTO) 0.77 x10^3/uL (1-3.4); LYMPHOCYTES % (AUTO) 15 % (22-44); MD NO; MEAN CORPUSCULAR HEMOGLOBIN 29.8 pg (27.5-34.5); MEAN CORPUSCULAR HGB CONC 33.6 g/dL (33.2-36.2); MEAN CORPUSCULAR VOLUME 88.8 fL (81-97); MEAN PLATELET VOLUME 8.1 fL (7.4-10.4); MONOCYTES % (AUTO) 14 % (2-9); NEUTROPHILS % (AUTO) 61 % (42-75); PLATELET COUNT 359 x10^3/uL (130-400); RED BLOOD COUNT 3.24 x10^6/uL (4.38-5.82); RED CELL DISTRIBUTION WIDTH 14.2 % (9.4-14.8)
[2018-07-21 06:36] LABS: ANION GAP 3 mmol/L (5-15); CALCIUM 8.1 mg/dL (8.5-10.1); CHLORIDE 108 mmol/L (98-107); CREATININE 0.87 mg/dL (0.7-1.3)
[2018-07-21 07:33] VITALS: BP 126/92
[2018-07-21] MEDS: SODIUM CHLORIDE FLUSH 10ML SYR IVF SCH ×2 (08:58→20:19)
[2018-07-21] MEDS: DOCUSATE 50 MG/5 ML, 10ML UDC PO SCH ×2 (08:58→20:18)
[2018-07-21] MEDS: AMIODARONE 200 MG TABLET PO SCH ×2 (08:58→20:19)
[2018-07-21] MEDS: CLOPIDOGREL 75 MG TABLET PO SCH (08:59)
[2018-07-21 14:00] VITALS: BP 134/92
[2018-07-21] MEDS ORDERED: CATHFLO-ALTEPLASE 2 MG/2 ML CATHFLUSH ONE (18:30)
[2018-07-21 19:52] VITALS: BP 131/81
[2018-07-21] MEDS: ENOXAPARIN 40 MG/0.4 ML SQ SCH (20:18)
[2018-07-21] MEDS: ATORVASTATIN 40 MG TABLET PO SCH (20:19)
[2018-07-21] MEDS: HYDROcodone/APAP 5/325 TABLET PO PRN (22:24)
[2018-07-22 02:00] VITALS: BP 123/81
[2018-07-22] MEDS: HYDROcodone/APAP 5/325 TABLET PO PRN (02:47)
[2018-07-22] MEDS: ASPIRIN 81 MG TABLET CHEW PO SCH (06:04)
[2018-07-22] MEDS: CARVEDILOL 3.125 MG TABLET PO SCH ×2 (06:04→17:57)
[2018-07-22 07:45] VITALS: BP 115/75
[2018-07-22] MEDS: DOCUSATE 50 MG/5 ML, 10ML UDC PO SCH ×2 (09:00→20:55)
[2018-07-22] MEDS: SODIUM CHLORIDE FLUSH 10ML SYR IVF SCH ×2 (09:30→20:56)
[2018-07-22] MEDS: CLOPIDOGREL 75 MG TABLET PO SCH (09:31)
[2018-07-22] MEDS: AMIODARONE 200 MG TABLET PO SCH ×2 (09:31→20:55)
[2018-07-22 12:32] VITALS: BP 139/88
[2018-07-22 20:23] VITALS: BP 118/82
[2018-07-22] MEDS: ATORVASTATIN 40 MG TABLET PO SCH (20:55)
[2018-07-22] MEDS: ENOXAPARIN 40 MG/0.4 ML SQ SCH (20:55)
[2018-07-22] MEDS ORDERED: DEXTROMETHORPHAN 30 MG/5 ML ORAL SOL PO PRN (21:30)
[2018-07-23 02:00] VITALS: BP 133/78
[2018-07-23] MEDS: ASPIRIN 81 MG TABLET CHEW PO SCH (06:39)
[2018-07-23] MEDS: CARVEDILOL 3.125 MG TABLET PO SCH ×2 (06:40→17:09)
[2018-07-23 06:50] VITALS: BP 124/82
[2018-07-23] MEDS: DOCUSATE 50 MG/5 ML, 10ML UDC PO SCH ×2 (08:06→21:10)
[2018-07-23] MEDS: SODIUM CHLORIDE FLUSH 10ML SYR IVF SCH ×2 (08:48→21:11)
[2018-07-23] MEDS: AMIODARONE 200 MG TABLET PO SCH ×2 (08:49→21:10)
[2018-07-23] MEDS: CLOPIDOGREL 75 MG TABLET PO SCH (08:49)
[2018-07-23 14:00] VITALS: BP 131/82
[2018-07-23 18:41] VITALS: BP 142/80
[2018-07-23] MEDS: ENOXAPARIN 40 MG/0.4 ML SQ SCH (21:09)
[2018-07-23] MEDS: ATORVASTATIN 40 MG TABLET PO SCH (21:10)
[2018-07-24 01:20] VITALS: BP 143/78
[2018-07-24] MEDS: ASPIRIN 81 MG TABLET CHEW PO SCH (06:07)
[2018-07-24] MEDS: CARVEDILOL 3.125 MG TABLET PO SCH (06:07)
[2018-07-24 07:14] VITALS: BP 113/77
[2018-07-24] MEDS: CLOPIDOGREL 75 MG TABLET PO SCH (08:33)
[2018-07-24] MEDS: DOCUSATE 50 MG/5 ML, 10ML UDC PO SCH (08:33)
[2018-07-24] MEDS: AMIODARONE 200 MG TABLET PO SCH (08:33)
[2018-07-24] MEDS: SODIUM CHLORIDE FLUSH 10ML SYR IVF SCH (08:35)
[2018-07-24] MEDS ORDERED: AMIO200T42 PO (10:53)
[2018-07-24] MEDS ORDERED: DOCU50LI12 GT (10:53)
[2018-07-24] MEDS ORDERED: CLOP75TA52 PO (10:53)
[2018-07-24] MEDS ORDERED: ATOR40TA78 PO (10:53)
[2018-07-24] MEDS ORDERED: LOSA25TA25 PO (10:53)
[2018-07-24] MEDS ORDERED: ASPI-496 PO (10:53)
[2018-07-24] MEDS ORDERED: CARV3.1212 PO (10:53)
[2018-07-24 12:44] VITALS: BP 128/75
== END 2018-07-24 13:11 | disposition home health service (06) | DRG 235 ==
LOC: ED 20:01 → EDIP 20:10 → CSU 20:58 → 5SO 07-03 18:43 → DCLOUNGE 07-24 12:25
PROVIDERS: ADMIT Internal Medicine; ATTEND Internal Medicine
PROC: 02100Z9 Bypass Coronary Artery, One Artery from Left Internal Mammary, Open Approach (ICD-10-PCS; 2018-07-01)
PROC: 06BP4ZZ Excision of Right Saphenous Vein, Percutaneous Endoscopic Approach (ICD-10-PCS; 2018-07-01)
PROC: 5A1221Z Performance of Cardiac Output, Continuous (ICD-10-PCS; 2018-07-01)
PROC: 021009W Bypass Coronary Artery, One Artery from Aorta with Autologous Venous Tissue, Open Approach (ICD-10-PCS; principal; 2018-07-01 08:30)
PROC: 0DHA8UZ Insertion of Feeding Device into Jejunum, Via Natural or Artificial Opening Endoscopic (ICD-10-PCS; 2018-07-08)
PROC: 02HV33Z Insertion of Infusion Device into Superior Vena Cava, Percutaneous Approach (ICD-10-PCS; 2018-07-11)
PROC: B548ZZA Ultrasonography of Superior Vena Cava, Guidance (ICD-10-PCS; 2018-07-11)
PROC: B5181ZA Fluoroscopy of Superior Vena Cava using Low Osmolar Contrast, Guidance (ICD-10-PCS; 2018-07-11)
PROC: 0DH63UZ Insertion of Feeding Device into Stomach, Percutaneous Approach (ICD-10-PCS; 2018-07-16)
DX: I21.4 Non-ST elevation (NSTEMI) myocardial infarction (principal); I50.31 Acute diastolic (congestive) heart failure; E43 Unspecified severe protein-calorie malnutrition; J69.0 Pneumonitis due to inhalation of food and vomit; D68.69 Other thrombophilia; I16.9 Hypertensive crisis, unspecified; I48.1 Persistent atrial fibrillation; I48.92 Unspecified atrial flutter; J98.11 Atelectasis; Z99.11 Dependence on respirator [ventilator] status; I95.9 Hypotension, unspecified; D64.9 Anemia, unspecified; E11.9 Type 2 diabetes mellitus without complications; E66.9 Obesity, unspecified; E78.00 Pure hypercholesterolemia, unspecified; E78.5 Hyperlipidemia, unspecified; I11.0 Hypertensive heart disease with heart failure; I25.110 Atherosclerotic heart disease of native coronary artery with unstable angina pectoris; I95.89 Other hypotension; K21.9 Gastro-esophageal reflux disease without esophagitis; R13.12 Dysphagia, oropharyngeal phase; Z79.02 Long term (current) use of antithrombotics/antiplatelets; Z79.82 Long term (current) use of aspirin; Z68.37 Body mass index [BMI] 37.0-37.9, adult; I25.2 Old myocardial infarction; Z80.1 Family history of malignant neoplasm of trachea, bronchus and lung; Z82.49 Family history of ischemic heart disease and other diseases of the circulatory system; Z82.5 Family history of asthma and other chronic lower respiratory diseases; Z87.442 Personal history of urinary calculi; Z87.891 Personal history of nicotine dependence; Z90.49 Acquired absence of other specified parts of digestive tract; Z93.1 Gastrostomy status; Z93.4 Other artificial openings of gastrointestinal tract status; Z95.5 Presence of coronary angioplasty implant and graft; Z98.84 Bariatric surgery status
CPT/HCPCS: 36415; 36573; 36600; 70450; 71045; 74018; 74230; 74340; 80048; 80053; 80061; 82040; 82140; 82330; 82607; 82800; 82803; 82810; 82947; 82962; 83036; 83605; 83735; 83880; 84100; 84132; 84134; 84145; 84295; 84439; 84443; 84478; 84484; 85014; 85018; 85025; 85049; 85347; 85520; 85610; 85730; 86850; 86900; 86923; 87040; 87070; 87081; 87147; 87205; 93005; 93312; 93321; 93325; 93880; 94002; 94150; 96365; 99152; 99153; 99285; B4087; G0378; J0295; J0610; J0690; J0697; J1644; J1650; J1815; J2250; J2704; J2710; J2720; J2997; J3010; J3370; J3475; J3480; J3490; P9047; Q9967; C1751; J0171; J0282; J1160; J1720; J1940; J2150; J2270; J2370; J2440; J3420; J7030; J7040; J7050; J7060; J7120